=== PATIENT | male | born 1955 | race Caucasian/White ===

== ENCOUNTER 2020-08-24 12:25 | Outpatient (REF) | payer MEDICARE, MEDICAID, SELFPAY ==
[2020-08-24 14:53] LABS: Alanine Aminotransferase 12 U/L (0-40); Alkaline Phosphatase 90 U/L (39-117); Anion Gap 12 (12-20); Aspartate Amino Transferase 14 U/L (5-37); Bilirubin Total 0.5 mg/dL (0.0-1.0); Blood Urea Nitrogen 24 mg/dL (9-16); Calcium 8.8 mg/dL (8.4-10.2); Carbon Dioxide 29 mmol/L (22-29); Chloride 103 mmol/L (96-108); Estimated Glomerular Filt Rate 57; Glucose Random 133 mg/dL (60-115); Potassium 4.8 mmol/l (3.3-5.1); Sodium 139 mmol/L (135-145); Total Protein 6.5 g/dL (6.5-8.0)
[2020-08-24 15:49] LABS: Creatinine Urine 97.72 mg/dL; Microalbum/Creatinine Ratio Ur 304.9 ug/mg cr
== END 2020-08-24 12:26 | disposition home or self-care (01) ==
LOC: HO.HMGCLNP 12:25
PROVIDERS: PCP Internal Medicine; Visit Provider Internal Medicine
DX: E87.5 Hyperkalemia (principal); E11.65 Type 2 diabetes mellitus with hyperglycemia; E78.5 Hyperlipidemia, unspecified; I10 Essential (primary) hypertension; E55.9 Vitamin D deficiency, unspecified
CPT/HCPCS: 36415; 80053; 82043

== ENCOUNTER → 2020-10-12 14:06 | Outpatient (BNVA) | payer MEDICARE, MEDICAID, SELFPAY | PROVIDERS: PCP Internal Medicine; Visit Provider Internal Medicine | DX: I87.2 Venous insufficiency (chronic) (peripheral) (principal) | CPT/HCPCS: 99202 ==

== ENCOUNTER 2020-10-23 12:41 | Outpatient (RCR) | payer MEDICARE, MEDICAID, SELFPAY | END 2021-01-05 11:41 | disposition home or self-care (01) | LOC: HO.WCC 12:41 | PROVIDERS: PCP Internal Medicine; Visit Provider Physician Assistant | DX: Z09 Encounter for follow-up examination after completed treatment for conditions other than malignant neoplasm (principal); I87.302 Chronic venous hypertension (idiopathic) without complications of left lower extremity; E11.51 Type 2 diabetes mellitus with diabetic peripheral angiopathy without gangrene; I70.202 Unspecified atherosclerosis of native arteries of extremities, left leg; E11.40 Type 2 diabetes mellitus with diabetic neuropathy, unspecified; E11.65 Type 2 diabetes mellitus with hyperglycemia; Z79.4 Long term (current) use of insulin; Z87.891 Personal history of nicotine dependence; Z79.2 Long term (current) use of antibiotics | CPT/HCPCS: 11042; 97597; 99203; 99211 ==

== ENCOUNTER 2020-12-15 09:56 | Outpatient (REF) | payer MEDICARE, MEDICAID, SELFPAY ==
--- NOTE | 2020-12-15 | US_ITS ---
EXAMINATION: COLOR-FLOW DUPLEX IMAGING OF THE BILATERAL LOWER EXTREMITY ARTERIAL SYSTEM. VELOCITY MEASUREMENTS THROUGHOUT THE FEMORAL ARTERIES WITH ANKLE-BRACHIAL PERIPHERAL ARTERIAL TESTING. CLINICAL INFORMATION: This is a 65-year-old male with left leg ulcer. Peripheral arterial disease. Interventional Radiologist: Adiel Davis M.D., F.S.I.R., F.A.C.R. RIGHT FEMORAL RUNOFF VELOCITIES: The right common femoral artery measures 119 cm/s and triphasic. The right profunda femoral artery is 102 cm/s and is monophasic. Right proximal superficial femoral artery measures 99 cm/s and triphasic. Mid superficial femoral artery is 118 cm/s and triphasic. Distal right superficial femoral artery measures 141 cm/s and is triphasic. Right popliteal velocity measures 217 cm/s and is triphasic. The posterior tibial artery velocity measures 83 cm/s and was monophasic. LEFT FEMORAL RUNOFF VELOCITIES: The left common femoral artery measures 119 cm/s and triphasic. The right profunda femoral artery is 95 cm/s and is biphasic. Right proximal superficial femoral artery measures 125 cm/s and triphasic. Mid superficial femoral artery is 111 cm/s and triphasic. Distal right superficial femoral artery measures 93 cm/s and is triphasic. Right popliteal velocity measures 108 cm/s and is triphasic. The posterior tibial artery velocity measures 104 cm/s and was triphasic. Calcified atherosclerotic plaque is seen throughout the arteries. There is a 2.3 x 1.0 x 1.5 cm lymph node in the left groin. There is a fatty hilum with normal vascularity. Clinical correlation is recommended. Incidental note is made of subcutaneous edema in the left calf. US/US arterial duplex LE BI IMPRESSION: 1. There is an elevated velocity in the right popliteal artery suggesting a hemodynamically significant stenosis. 2. No hemodynamically significant stenosis is seen in the right lower 70 runoff.
== END 2020-12-15 09:57 | disposition home or self-care (01) ==
LOC: HO.US 09:56
PROVIDERS: Visit Provider Physician Assistant
DX: I87.312 Chronic venous hypertension (idiopathic) with ulcer of left lower extremity (principal); I70.242 Atherosclerosis of native arteries of left leg with ulceration of calf
CPT/HCPCS: 93925

== ENCOUNTER 2021-04-28 09:24 | Outpatient (REF) | payer MEDICARE, MEDICAID, SELFPAY ==
[2021-04-28 11:24] LABS: MANUAL DIFF FLAG NO
[2021-04-28 11:32] LABS: Basophils Percent Auto 0.2 % (0-2); Eosinophils Absolute Auto 0.5 X10*3/uL (0.0-0.4); Eosinophils Percent Auto 4.1 % (0-4); Hematocrit 33.3 % (42-52); Hemoglobin 10.7 g/dl (14.0-18.0); Imm Gran Abs Auto 0.05 X10*3/uL (0.00-0.03); Imm Gran Pct Auto 0.4 % (0.0-0.4); Lymphocytes Absolute Auto 1.3 X10*3/uL (1.2-4.9); Lymphocytes Percent Auto 10.3 % (20-40); Mean Corpuscular HGB Conc 32.1 g/dl (31.0-36.0); Mean Corpuscular Hemoglobin 31.1 pg (27.0-33.0); Mean Corpuscular Volume 96.8 fL (80-98); Mean Platelet Volume 10.5 fL (9.4-12.4); Monocytes Absolute Auto 0.8 X10*3/uL (0.1-1.2); Monocytes Percent Auto 6.7 % (2-11); Neutrophils Absolute Auto 9.6 X10*3/uL (2.0-8.3); Neutrophils Percent Auto 78.3 % (45-73); Platelet Count 300 X10*3/uL (160-400); Red Blood Count 3.44 X10*6/uL (4.60-5.80); Red Cell Distribution Width 12.4 % (11.0-16.0); White Blood Count 12.3 X10*3/uL (4.8-10.8)
[2021-04-28 11:38] LABS: Estimated Average Glucose 111 mg/dL; Hemoglobin A1c % 5.5 %
[2021-04-28 11:51] LABS: Alanine Aminotransferase 8 U/L (0-40); Albumin Level 3.9 g/dL (3.5-5.0); Alkaline Phosphatase 85 U/L (39-117); Anion Gap 14 (12-20); Aspartate Amino Transferase 11 U/L (5-37); Bilirubin Total 0.6 mg/dL (0.0-1.0); Blood Urea Nitrogen 28 mg/dL (9-16); Calcium 9.2 mg/dL (8.4-10.2); Carbon Dioxide 28 mmol/L (22-29); Chloride 104 mmol/L (96-108); Cholesterol 97 mg/dL; Estimated Glomerular Filt Rate 47; Glucose Fasting 185 mg/dL (60-99); HDL Cholesterol 23 mg/dL; Iron 59 mcg/dL (45-160); LDL Cholesterol Calculated 55 mg/dl; Percent Iron Saturation 24 % (15-50); Potassium 5.6 mmol/L (3.3-5.1); Sodium 140 mmol/L (135-145); Total Iron Binding Capacity 248 mcg/dL (228-428); Total Protein 6.3 g/dL (6.5-8.0); Triglycerides 96 mg/dL; Unsaturated Iron Binding 189 ug/dL
[2021-04-28 12:01] LABS: Vitamin D 25-OH Total 39.4 ng/mL (>30)
[2021-04-28 12:23] LABS: Creatinine Urine 127.85 mg/dL; Microalbum/Creatinine Ratio Ur 198.6 ug/mg cr
== END 2021-04-28 09:25 | disposition home or self-care (01) ==
LOC: HO.HMGCLDS 09:24
PROVIDERS: PCP Internal Medicine; Visit Provider Internal Medicine
DX: E11.40 Type 2 diabetes mellitus with diabetic neuropathy, unspecified (principal); M15.9 Polyosteoarthritis, unspecified; L03.119 Cellulitis of unspecified part of limb; I73.9 Peripheral vascular disease, unspecified; D50.9 Iron deficiency anemia, unspecified
CPT/HCPCS: 36415; 80053; 80061; 82043; 82306; 83036; 83540; 85025

== ENCOUNTER → 2021-05-19 13:54 | Outpatient (BNVA) | payer MEDICARE, MEDICAID, SELFPAY | PROVIDERS: PCP Internal Medicine; Referring Provider Internal Medicine; Visit Provider Surgery | DX: L02.831 Carbuncle of head [any part, except face] (principal) | CPT/HCPCS: 10060; 97597; 99202 ==

== ENCOUNTER → 2021-06-02 14:48 | Outpatient (BNVA) | payer MEDICARE, MEDICAID, SELFPAY | PROVIDERS: PCP Internal Medicine; Referring Provider Internal Medicine; Visit Provider Surgery | DX: Z09 Encounter for follow-up examination after completed treatment for conditions other than malignant neoplasm (principal); L02.93 Carbuncle, unspecified | CPT/HCPCS: 99212 ==

== ENCOUNTER → 2021-06-17 13:28 | Outpatient (BNVA) | payer MEDICARE, MEDICAID, SELFPAY | PROVIDERS: PCP Internal Medicine; Visit Provider Internal Medicine | DX: E11.40 Type 2 diabetes mellitus with diabetic neuropathy, unspecified (principal); I73.9 Peripheral vascular disease, unspecified; I10 Essential (primary) hypertension; E78.5 Hyperlipidemia, unspecified; Z87.891 Personal history of nicotine dependence; Z99.3 Dependence on wheelchair; Z79.4 Long term (current) use of insulin; Z79.899 Other long term (current) drug therapy | CPT/HCPCS: 82947; 99212 ==

== ENCOUNTER 2021-08-17 09:26 | Outpatient (REF) | payer MEDICARE, MEDICAID, SELFPAY ==
[2021-08-17 11:29] LABS: MANUAL DIFF FLAG NO
[2021-08-17 11:46] LABS: Basophils Percent Auto 0.5 % (0-2); Eosinophils Absolute Auto 0.4 X10*3/uL (0.0-0.4); Eosinophils Percent Auto 5.6 % (0-4); Hematocrit 31.8 % (42-52); Imm Gran Abs Auto 0.03 X10*3/uL (0.00-0.03); Imm Gran Pct Auto 0.4 % (0.0-0.4); Lymphocytes Absolute Auto 1.5 X10*3/uL (1.2-4.9); Lymphocytes Percent Auto 19.8 % (20-40); Mean Corpuscular HGB Conc 31.4 g/dl (31.0-36.0); Mean Corpuscular Hemoglobin 29.9 pg (27.0-33.0); Mean Corpuscular Volume 94.9 fL (80-98); Mean Platelet Volume 10.4 fL (9.4-12.4); Monocytes Absolute Auto 0.6 X10*3/uL (0.1-1.2); Monocytes Percent Auto 7.4 % (2-11); Neutrophils Absolute Auto 5.1 X10*3/uL (2.0-8.3); Neutrophils Percent Auto 66.3 % (45-73); Platelet Count 443 X10*3/uL (160-400); Red Blood Count 3.35 X10*6/uL (4.60-5.80); Red Cell Distribution Width 13.3 % (11.0-16.0); White Blood Count 7.7 X10*3/uL (4.8-10.8)
[2021-08-17 11:49] LABS: Estimated Average Glucose 137 mg/dL; Hemoglobin A1c % 6.4 %
[2021-08-17 12:18] LABS: Anion Gap 14 (12-20); Blood Urea Nitrogen 25 mg/dL (9-16); Carbon Dioxide 25 mmol/L (22-29); Chloride 107 mmol/L (96-108); Estimated Glomerular Filt Rate 53; Glucose Fasting 82 mg/dL (60-99); Iron 62 mcg/dL (45-160); Percent Iron Saturation 24 % (15-50); Potassium 5.1 mmol/L (3.3-5.1); Sodium 141 mmol/L (135-145); Total Iron Binding Capacity 257 mcg/dL (228-428); Unsaturated Iron Binding 195 ug/dL
== END 2021-08-17 09:27 | disposition home or self-care (01) ==
LOC: HO.HMGCLDS 09:26
PROVIDERS: PCP Internal Medicine; Visit Provider Internal Medicine
DX: D50.9 Iron deficiency anemia, unspecified (principal); E11.40 Type 2 diabetes mellitus with diabetic neuropathy, unspecified; I73.9 Peripheral vascular disease, unspecified; I10 Essential (primary) hypertension
CPT/HCPCS: 36415; 80048; 83036; 83540; 85025

== ENCOUNTER 2021-09-24 13:40 | Outpatient (RCR) | payer MEDICARE, MEDICAID, SELFPAY | END 2021-09-27 16:06 | disposition home or self-care (01) | LOC: HO.WCC 13:40 | PROVIDERS: PCP Internal Medicine; Visit Provider Physician Assistant | DX: L89.321 Pressure ulcer of left buttock, stage 1 (principal); L89.311 Pressure ulcer of right buttock, stage 1; S70.311D Abrasion, right thigh, subsequent encounter; E11.40 Type 2 diabetes mellitus with diabetic neuropathy, unspecified; I10 Essential (primary) hypertension; R32 Unspecified urinary incontinence; Z87.891 Personal history of nicotine dependence; Z79.4 Long term (current) use of insulin | CPT/HCPCS: 99213 ==

== ENCOUNTER → 2021-11-03 13:21 | Outpatient (BNVA) | payer MEDICARE, MEDICAID, SELFPAY | PROVIDERS: PCP Internal Medicine; Referring Provider Internal Medicine; Visit Provider Nurse Practitioner Family | DX: Z12.11 Encounter for screening for malignant neoplasm of colon (principal); D50.8 Other iron deficiency anemias | CPT/HCPCS: 99202 ==

== ENCOUNTER 2021-11-18 09:43 | Outpatient (REF) | payer MEDICARE, MEDICAID, SELFPAY ==
[2021-11-18 11:06] LABS: MANUAL DIFF FLAG NO
[2021-11-18 11:10] LABS: Basophils Percent Auto 0.2 % (0-2); Eosinophils Absolute Auto 0.5 X10*3/uL (0.0-0.4); Eosinophils Percent Auto 5.2 % (0-4); Hematocrit 32.7 % (42.0-52.0); Hemoglobin 10.6 g/dl (14.0-18.0); Imm Gran Abs Auto 0.02 X10*3/uL (0.00-0.03); Imm Gran Pct Auto 0.2 % (0.0-0.4); Lymphocytes Absolute Auto 1.6 X10*3/uL (1.2-4.9); Lymphocytes Percent Auto 17.2 % (20-40); Mean Corpuscular HGB Conc 32.4 g/dl (31.0-36.0); Mean Corpuscular Volume 95.6 fL (80.0-98.0); Mean Platelet Volume 10.3 fL (9.4-12.4); Monocytes Absolute Auto 0.6 X10*3/uL (0.1-1.2); Monocytes Percent Auto 6.7 % (2-11); Neutrophils Absolute Auto 6.5 x10*3/uL (2.0-8.3); Neutrophils Percent Auto 70.5 % (45-73); Platelet Count 327 X10*3/uL (160-400); Red Blood Count 3.42 X10*6/uL (4.60-5.80); Red Cell Distribution Width 13.4 % (11.0-16.0); White Blood Count 9.2 X10*3/uL (4.8-10.8)
[2021-11-18 11:23] LABS: Estimated Average Glucose 117 mg/dL; Hemoglobin A1c % 5.7 %
[2021-11-18 11:49] LABS: Alanine Aminotransferase 14 U/L (0-40); Alkaline Phosphatase 76 U/L (39-117); Anion Gap 10 (12-20); Aspartate Amino Transferase 14 U/L (5-37); Bilirubin Total 0.9 mg/dL (0.0-1.0); Blood Urea Nitrogen 22 mg/dL (9-16); Calcium 9.4 mg/dL (8.4-10.2); Carbon Dioxide 29 mmol/L (22-29); Chloride 105 mmol/L (96-108); Cholesterol 97 mg/dL; Estimated Glomerular Filt Rate 56; Glucose Fasting 78 mg/dL (60-99); HDL Cholesterol 27 mg/dL; Iron 100 mcg/dL (45-160); LDL Cholesterol Calculated 53 mg/dl; Percent Iron Saturation 35 % (15-50); Potassium 4.9 mmol/L (3.3-5.1); Sodium 139 mmol/L (135-145); Total Iron Binding Capacity 286 mcg/dL (228-428); Total Protein 6.9 g/dL (6.5-8.0); Triglycerides 89 mg/dL; Unsaturated Iron Binding 186 ug/dL
[2021-11-18 12:00] LABS: Creatinine Urine 67.18 mg/dL; Microalbum/Creatinine Ratio Ur 695.1 ug/mg cr
== END 2021-11-18 09:44 | disposition home or self-care (01) ==
LOC: HO.HMGCLDS 09:43
PROVIDERS: PCP Internal Medicine; Visit Provider Internal Medicine
DX: E11.40 Type 2 diabetes mellitus with diabetic neuropathy, unspecified (principal); D50.9 Iron deficiency anemia, unspecified; E78.5 Hyperlipidemia, unspecified; I10 Essential (primary) hypertension; I73.9 Peripheral vascular disease, unspecified; I87.2 Venous insufficiency (chronic) (peripheral); Z79.4 Long term (current) use of insulin
CPT/HCPCS: 36415; 80053; 80061; 82043; 82306; 83036; 83540; 85025

== ENCOUNTER 2022-04-06 09:59 | Outpatient (REF) | payer MEDICARE, MEDICAID, SELFPAY ==
[2022-04-06 11:33] LABS: MANUAL DIFF FLAG NO
[2022-04-06 11:48] LABS: Basophils Percent Auto 0.3 % (0-2); Eosinophils Absolute Auto 0.5 X10*3/uL (0.0-0.4); Eosinophils Percent Auto 5.5 % (0-4); Hematocrit 33.3 % (42.0-52.0); Hemoglobin 10.8 g/dl (14.0-18.0); Imm Gran Abs Auto 0.02 X10*3/uL (0.00-0.03); Imm Gran Pct Auto 0.2 % (0.0-0.4); Lymphocytes Absolute Auto 1.9 X10*3/uL (1.2-4.9); Lymphocytes Percent Auto 20.9 % (20-40); Mean Corpuscular HGB Conc 32.4 g/dl (31.0-36.0); Mean Corpuscular Volume 95.7 fL (80.0-98.0); Mean Platelet Volume 10.3 fL (9.4-12.4); Monocytes Absolute Auto 0.6 X10*3/uL (0.1-1.2); Monocytes Percent Auto 6.6 % (2-11); Neutrophils Percent Auto 66.5 % (45-73); Platelet Count 308 X10*3/uL (160-400); Red Blood Count 3.48 X10*6/uL (4.60-5.80); Red Cell Distribution Width 12.3 % (11.0-16.0)
[2022-04-06 11:50] LABS: Estimated Average Glucose 117 mg/dL; Hemoglobin A1c % 5.7 %
[2022-04-06 11:54] LABS: Alanine Aminotransferase 12 U/L (0-40); Anion Gap 11 (12-20); Aspartate Amino Transferase 14 U/L (5-37); Blood Urea Nitrogen 29 mg/dL (9-16); Calcium 9.3 mg/dL (8.4-10.2); Carbon Dioxide 26 mmol/L (22-29); Chloride 107 mmol/L (96-108); Cholesterol 100 mg/dL; Estimated Glomerular Filt Rate 53; Glucose Fasting 104 mg/dL (60-99); HDL Cholesterol 28 mg/dL; LDL Cholesterol Calculated 55 mg/dl; Potassium 5.3 mmol/L (3.3-5.1); Sodium 139 mmol/L (135-145); Triglycerides 88 mg/dL
[2022-04-06 12:12] LABS: Creatinine Urine 36.06 mg/dL; Microalbum/Creatinine Ratio Ur 537.9 ug/mg cr
[2022-04-06 12:20] LABS: Vitamin D 25-OH Total 32.9 ng/mL (>30)
== END 2022-04-06 10:00 | disposition home or self-care (01) ==
LOC: HO.HMGCLDS 09:59
PROVIDERS: Visit Provider Internal Medicine
DX: E11.40 Type 2 diabetes mellitus with diabetic neuropathy, unspecified (principal); D50.9 Iron deficiency anemia, unspecified; E78.5 Hyperlipidemia, unspecified; I10 Essential (primary) hypertension; Z79.4 Long term (current) use of insulin
CPT/HCPCS: 36415; 80048; 80061; 82043; 82306; 83036; 84450; 84460; 85025

== ENCOUNTER 2022-04-29 09:49 | Outpatient (REF) | payer MEDICARE, MEDICAID, SELFPAY ==
[2022-04-29 12:12] LABS: Blood Urea Nitrogen 35 mg/dL (9-16); Estimated Glomerular Filt Rate 45
== END 2022-04-29 09:50 | disposition home or self-care (01) ==
LOC: HO.HMGCLDS 09:49
PROVIDERS: PCP Internal Medicine; Visit Provider Radiology Vascular & Interventional Radiology
DX: R79.89 Other specified abnormal findings of blood chemistry (principal); R94.4 Abnormal results of kidney function studies
CPT/HCPCS: 36415; 82565; 84520

== ENCOUNTER 2022-05-06 13:04 | Outpatient (REF) | payer MEDICARE, MEDICAID, SELFPAY ==
[2022-05-06 15:37] LABS: Blood Urea Nitrogen 34 mg/dL (9-16); Estimated Glomerular Filt Rate 38
== END 2022-05-06 13:05 | disposition home or self-care (01) ==
LOC: HO.HMGCLDS 13:04
PROVIDERS: PCP Internal Medicine; Visit Provider Radiology Vascular & Interventional Radiology
DX: R79.89 Other specified abnormal findings of blood chemistry (principal); R94.4 Abnormal results of kidney function studies
CPT/HCPCS: 36415; 82565; 84520

== ENCOUNTER 2022-05-09 12:33 | Outpatient (REF) | payer MEDICARE, MEDICAID, SELFPAY ==
[2022-05-09 14:20] LABS: Blood Urea Nitrogen 18 mg/dL (9-16); Estimated Glomerular Filt Rate 47
== END 2022-05-09 12:34 | disposition home or self-care (01) ==
LOC: HO.HMGCLDS 12:33
PROVIDERS: Visit Provider Radiology Vascular & Interventional Radiology
DX: R79.89 Other specified abnormal findings of blood chemistry (principal); R94.4 Abnormal results of kidney function studies
CPT/HCPCS: 36415; 82565; 84520

== ENCOUNTER 2022-08-06 10:18 | Outpatient (REF) | payer MEDICARE, MEDICAID, SELFPAY ==
[2022-08-06 11:15] LABS: MANUAL DIFF FLAG NO
[2022-08-06 11:25] LABS: Basophils Percent Auto 0.4 % (0-2); Eosinophils Absolute Auto 0.4 X10*3/uL (0.0-0.4); Eosinophils Percent Auto 4.1 % (0-4); Hematocrit 33.9 % (42.0-52.0); Imm Gran Abs Auto 0.04 X10*3/uL (0.00-0.03); Imm Gran Pct Auto 0.4 % (0.0-0.4); Lymphocytes Absolute Auto 1.7 X10*3/uL (1.2-4.9); Lymphocytes Percent Auto 16.6 % (20-40); Mean Corpuscular HGB Conc 32.4 g/dl (31.0-36.0); Mean Corpuscular Hemoglobin 31.2 pg (27.0-33.0); Mean Platelet Volume 9.9 fL (9.4-12.4); Monocytes Absolute Auto 0.7 X10*3/uL (0.1-1.2); Monocytes Percent Auto 7.2 % (2-11); Neutrophils Absolute Auto 7.1 x10*3/uL (2.0-8.3); Neutrophils Percent Auto 71.3 % (45-73); Platelet Count 340 X10*3/uL (160-400); Red Blood Count 3.53 X10*6/uL (4.60-5.80); Red Cell Distribution Width 12.4 % (11.0-16.0); White Blood Count 9.9 X10*3/uL (4.8-10.8)
[2022-08-06 11:26] LABS: Estimated Average Glucose 114 mg/dL; Hemoglobin A1c % 5.6 %
[2022-08-06 12:18] LABS: Alanine Aminotransferase 12 U/L (0-40); Anion Gap 14 (12-20); Aspartate Amino Transferase 15 U/L (5-37); Blood Urea Nitrogen 31 mg/dL (9-16); Calcium 9.4 mg/dL (8.4-10.2); Carbon Dioxide 28 mmol/L (22-29); Chloride 104 mmol/L (96-108); Cholesterol 94 mg/dL; Estimated Glomerular Filt Rate 49; Glucose Fasting 100 mg/dL (60-99); HDL Cholesterol 26 mg/dL; Iron 69 mcg/dL (45-160); LDL Cholesterol Calculated 49 mg/dl; Percent Iron Saturation 24 % (15-50); Potassium 6.1 mmol/L (3.3-5.1); Sodium 140 mmol/L (135-145); Total Iron Binding Capacity 287 mcg/dL (228-428); Triglycerides 98 mg/dL; Unsaturated Iron Binding 218 ug/dL
== END 2022-08-06 10:19 | disposition home or self-care (01) ==
LOC: HO.HMGCLDS 10:18
PROVIDERS: PCP Internal Medicine; Visit Provider Internal Medicine
DX: D64.9 Anemia, unspecified (principal); E78.5 Hyperlipidemia, unspecified; E11.40 Type 2 diabetes mellitus with diabetic neuropathy, unspecified; I10 Essential (primary) hypertension; Z79.4 Long term (current) use of insulin
CPT/HCPCS: 36415; 80048; 80061; 83036; 83540; 84450; 84460; 85025

== ENCOUNTER 2022-08-08 13:45 | Outpatient (REF) | payer MEDICARE, MEDICAID, SELFPAY ==
[2022-08-08 16:33] LABS: Potassium 5.5 mmol/L (3.3-5.1)
== END 2022-08-08 13:46 | disposition home or self-care (01) ==
LOC: HO.HMGCLDS 13:45
PROVIDERS: PCP Internal Medicine; Visit Provider Internal Medicine
DX: E87.5 Hyperkalemia (principal)
CPT/HCPCS: 36415; 84132

== ENCOUNTER 2022-10-04 10:43 | Day surgery (SDC) | payer MEDICARE, MEDICAID, SELFPAY ==
[2022-09-27 14:11] VITALS: BMI 31.8
--- NOTE | 2022-10-03 13:16 | HO.ANESPROP2 ---
Documented by User: Mariel Yoo NP 10/03/22 13:19 HPI - Anesthesia Eval Consult details Narrative: 67yo M for Upper Endoscopy and Colonoscopy Hx hyperkalemia - repeat DOS PMFSH Active Problems Active Problems: All Active Problems (Updated 08/08/22 @ 13:43 by Jaquelin Marr MD) Type 2 diabetes mellitus with diabetic neuropathy (Acute) HTN (hypertension) (Acute) HLD (hyperlipidemia) (Acute) Anemia of chronic disease (Acute) Critical illness polyneuropathy (Acute) Difficulty walking (Acute) Acquired deformity of toenail (Acute) Carbuncle (Acute) Venous stasis dermatitis of both lower extremities (Acute) Peripheral vascular disease (Acute) DDD (degenerative disc disease), cervical (Acute) Difficulty standing (Acute) Past Medical History Medical History (Updated 08/08/22 @ 13:43 by Jaquelin Marr MD) Acquired deformity of toenail Anemia of chronic disease Atonic bladder Benign prostatic hyperplasia with urinary retention Carbuncle Chronic venous insufficiency of lower extremity Critical illness polyneuropathy DDD (degenerative disc disease), cervical Decubitus skin ulcer Difficulty standing Difficulty walking History of coma HLD (hyperlipidemia) HTN (hypertension) Obstructive uropathy Osteoarthritis of multiple joints Peripheral vascular disease Poor mobility Stage 3a chronic kidney disease Type 2 diabetes mellitus with diabetic neuropathy Venous stasis dermatitis of both lower extremities Family History Family History Father Myocardial infarct Mother Diabetes Surgical History Surgical History Cystostomy in place H/O transurethral resection of prostate Hx of appendectomy Hx of colonoscopy Social History Social History Housing: Apartment Alcohol intake: never Patient Tobacco Use Status: Former Tobacco user Years Smoked: 15 yrs e-Cigarette/Vaping Use: Never Used Advance Directives: No Advance Directives Information Provided: Yes Current occupational status: disabled Cognitive needs: No Hearing needs: No Vision needs: No Meds Allergies Allergy/AdvReac Type Severity Reaction Status Date / Time No Known Allergies Allergy Verified 08/08/22 13:21 Exam Exam Date and Time: October 03, 2022 1316 Height,Weight and Vital Signs: Height 5 ft 11 in Weight 103.419 kg Pertinent Lab Results Pertinent Lab Results: Laboratory Tests 08/06/22 08/06/22 08/08/22 10:25 10:25 13:50 WBC 9.9 Hgb 11.0 L Hct 33.9 L Plt Count 340 Sodium 140 Potassium 5.5 H Chloride 104 Carbon Dioxide 28 BUN 31 H Creatinine 1.42 H Assessment and Plan Assessment Anesthesia Assessment: Chart Reviewed Documented by User: Christal Cabrera MD 10/04/22 11:48 PMF Past Medical History Medical History (Updated 08/08/22 @ 13:43 by Jaquelin Marr MD) Acquired deformity of toenail Anemia of chronic disease Atonic bladder Benign prostatic hyperplasia with urinary retention Carbuncle Chronic venous insufficiency of lower extremity Critical illness polyneuropathy DDD (degenerative disc disease), cervical Decubitus skin ulcer Difficulty standing Difficulty walking History of coma HLD (hyperlipidemia) HTN (hypertension) Obstructive uropathy Osteoarthritis of multiple joints Peripheral vascular disease Poor mobility Stage 3a chronic kidney disease Type 2 diabetes mellitus with diabetic neuropathy Venous stasis dermatitis of both lower extremities Family History Family History Father Myocardial infarct Mother Diabetes Family history of problems with anesthesia: No Surgical History Surgical History Cystostomy in place H/O transurethral resection of prostate Hx of appendectomy Hx of colonoscopy History of Problems with Anesthesia: No Social History Social History Housing: Apartment Alcohol intake: never Patient Tobacco Use Status: Former Tobacco user Years Smoked: 15 yrs e-Cigarette/Vaping Use: Never Used Advance Directives: No Advance Directives Information Provided: Yes Current occupational status: disabled Cognitive needs: No Hearing needs: No Vision needs: No Meds Allergies Allergy/AdvReac Type Severity Reaction Status Date / Time No Known Allergies Allergy Verified 08/08/22 13:21 Exam Airway Mallampati Class: II (Edentulous) TM Dist: >3cm Neck ROM: Full Heart: rrr Lungs: cta Assessment and Plan Assessment Anesthesia Assessment: Anesthesia Plan Discussed and Chart Reviewed Final Anesthetic Review Family History of Problems with Anesthesia: No History of Problems with Anesthesia: No NPO: Yes ASA Class: III Final Preanesthetic Review: No Changes in Pt Med Stat, Meds/Allgs Chart Reviewed and Consent Obtained/Reviewed Patient Risk: Intermediate Procedure Risk: Intermediate Anesthetic Plan Anesthetic Plan: MAC: Disposition: Standard PACU
--- NOTE | 2022-10-04 11:03 | MHC.SHP ---
Pre-Procedural Eval Section A Date of Service: 10/04/22 Section B Chief Complaint: anemia Relevant Family History (Specify if Yes): No Relevant Social History: None Present Medications: see Short Stay Collaborative assessment Medical History: Significant History (Acquired deformity of toenail Anemia of chronic disease Atonic bladder Benign prostatic hyperplasia with urinary retention Carbuncle Chronic venous insufficiency of lower extremity Critical illness polyneuropathy DDD (degenerative disc disease), cervical Decubitus skin ulcer Difficulty standing Diff) History of Previous Operations: Relevant previous surgery/procedure and date(s) (Cystostomy in place H/O transurethral resection of prostate Hx of appendectomy Hx of colonoscopy) Allergies: Allergies Allergy/AdvReac Type Severity Reaction Status Date / Time No Known Allergies Allergy Verified 08/08/22 13:21 Review of Systems Sugical H&P ROS: Negative: Constitution, Cardiovascular, Respiratory, Neurological, Psychiatric, Hem-Onc, Allergic/Immunologic, Gastrointestinal, Genitourinary, Musculoskeletal, Integumentary, Endocrine and Eyes/Ears/Nose/Throat Exam Surgical H&P Exam: Normal: HEENT, Normal: Heart, Normal: Lungs, Normal: Extremities, Normal: Abdomen and Normal: Skin and Significant Findings: Neurological (reduced movement legs ) Plan Diagnosis/Plan: Unchanged I have reviewed the history and physical and performed a pertinent physical examination on my patient. No changes have occurred unless specified.
[2022-10-04 11:49] LABS: Anion Gap 16 (12-20); Blood Urea Nitrogen 25 mg/dL (9-16); Calcium 9.7 mg/dL (8.4-10.2); Carbon Dioxide 26 mmol/L (22-29); Chloride 104 mmol/L (96-108); Creatinine Clr Calc Pharmacy 63.2; Estimated Glomerular Filt Rate 52; Glucose Fasting 94 mg/dL (60-99); Potassium 5.5 mmol/L (3.3-5.1); Sodium 140 mmol/L (135-145)
[2022-10-04 11:54] LABS: Glucose, Whole Blood 87 mg/dL (60-115)
[2022-10-04 11:57] VITALS: BP 144/56; PULSE 55; RESP 16; TEMP 36.6; O2SAT 98
[2022-10-04] MEDS: Lactated Ringers 1,000 ML 100 ML IVCONT (11:58)
--- NOTE | 2022-10-04 12:14 | W.PM.OPN ---
Operative Note Operative Note Date of Service: 10/04/22 Narrative: Operative Information Procedure Description: EGD, Indication: anemia, diarrhea Anesthesia: MAC FLEXIBLE TRANSORAL UPPER GASTROINTESTINAL ENDOSCOPY UPPER ENDOSCOPY Consent: Indications for the procedure and potential complications of bleeding, perforation, reaction to medications and missed diagnosis were discussed with the patient and informed consent was obtained. Instrument: Olympus GIF H 190 J mid size upper endoscope Monitoring: Vital signs and clinical assessment, continuous EKG monitoring, Pulse oximetry, Carbon Dioxide monitoring and blood pressure monitoring were done throughout the procedure. Procedure: The patient was placed in the left lateral decubitis position and pre-procedure medications were administered and a bite block was placed. The endoscope was inserted into the mouth and advanced under direct vision to the third part of duodenum. A careful inspection was made as the upper endoscope was withdrawn including a retroflexed examination of the proximal stomach; Findings and interventions are described below. Findings: Larynx:normal Esophagus: GE junction at 40 cm, diaphragm hiatus at 40 cm, bogginess at GEJ, bx taken as well as from distal esophagus Stomach: mosaic pattern with patchy erythema and granularity. Biopsies were obtained. Grade 2 flap valve on retroflexed examination of the cardia. Duodenum: Normal bulb and descending duodenum, bx taken Intervention: Biopsies as noted above Patient was turned for colonoscopy but solid stool seen so procedure was abandoned Impression and Post Procedure Diagnosis: Endoscopy Findings: gastritis mild esophagitis Plan: await bx results see back in office to review prep Above findings were reviewed with the patient and relevant handouts were provided if indicated.
[2022-10-04 12:25] VITALS: BP 119/59; PULSE 58; RESP 16; TEMP 37.1; O2SAT 98
[2022-10-04 12:40] VITALS: BP 161/68; PULSE 58; RESP 18; O2SAT 98
== END 2022-10-04 13:40 | disposition home or self-care (01) ==
PROVIDERS: Nurse Practitioner; PCP Internal Medicine; Visit Provider Internal Medicine Gastroenterology
PROC: (CPT 43239; principal; 2022-10-04 11:50)
DX: D50.8 Other iron deficiency anemias (principal); R19.7 Diarrhea, unspecified; K29.50 Unspecified chronic gastritis without bleeding; K20.80 Other esophagitis without bleeding; K44.9 Diaphragmatic hernia without obstruction or gangrene; E11.22 Type 2 diabetes mellitus with diabetic chronic kidney disease; I12.9 Hypertensive chronic kidney disease with stage 1 through stage 4 chronic kidney disease, or unspecified chronic kidney disease; N18.31 Chronic kidney disease, stage 3a; E11.40 Type 2 diabetes mellitus with diabetic neuropathy, unspecified; Z79.4 Long term (current) use of insulin; I83.12 Varicose veins of left lower extremity with inflammation; I83.11 Varicose veins of right lower extremity with inflammation; I73.9 Peripheral vascular disease, unspecified; R26.2 Difficulty in walking, not elsewhere classified; Z87.891 Personal history of nicotine dependence; Z79.899 Other long term (current) drug therapy
CPT/HCPCS: 43239; 36415; 80048; 82947; 88305; 88342

== ENCOUNTER 2022-12-10 10:10 | Outpatient (REF) | payer MEDICARE, MEDICAID, SELFPAY ==
[2022-12-10 11:17] LABS: MANUAL DIFF FLAG NO
[2022-12-10 11:27] LABS: Basophils Percent Auto 0.5 % (0-2); Eosinophils Absolute Auto 0.5 X10*3/uL (0.0-0.4); Eosinophils Percent Auto 6.5 % (0-4); Hematocrit 35.1 % (42.0-52.0); Hemoglobin 11.3 g/dl (14.0-18.0); Imm Gran Abs Auto 0.03 X10*3/uL (0.00-0.03); Imm Gran Pct Auto 0.4 % (0.0-0.4); Lymphocytes Absolute Auto 1.8 X10*3/uL (1.2-4.9); Mean Corpuscular HGB Conc 32.2 g/dl (31.0-36.0); Mean Corpuscular Hemoglobin 30.6 pg (27.0-33.0); Mean Corpuscular Volume 95.1 fL (80.0-98.0); Mean Platelet Volume 10.1 fL (9.4-12.4); Monocytes Absolute Auto 0.6 X10*3/uL (0.1-1.2); Monocytes Percent Auto 7.2 % (2-11); Neutrophils Absolute Auto 5.2 x10*3/uL (2.0-8.3); Neutrophils Percent Auto 63.4 % (45-73); Platelet Count 336 X10*3/uL (160-400); Red Blood Count 3.69 X10*6/uL (4.60-5.80); Red Cell Distribution Width 12.7 % (11.0-16.0); White Blood Count 8.2 X10*3/uL (4.8-10.8)
[2022-12-10 11:33] LABS: Estimated Average Glucose 105 mg/dL; Hemoglobin A1c % 5.3 %
[2022-12-10 11:44] LABS: Alanine Aminotransferase 12 U/L (0-40); Anion Gap 12 (12-20); Aspartate Amino Transferase 15 U/L (5-37); Blood Urea Nitrogen 28 mg/dL (9-16); Calcium 9.2 mg/dL (8.4-10.2); Carbon Dioxide 28 mmol/L (22-29); Chloride 106 mmol/L (96-108); Cholesterol 94 mg/dL; Estimated Glomerular Filt Rate 49; Glucose Fasting 80 mg/dL (60-99); HDL Cholesterol 32 mg/dL; LDL Cholesterol Calculated 48 mg/dl; Potassium 5.2 mmol/L (3.3-5.1); Sodium 141 mmol/L (135-145); Triglycerides 74 mg/dL
[2022-12-10 12:03] LABS: Vitamin D 25-OH Total 35.4 ng/mL (>30)
== END 2022-12-10 10:11 | disposition home or self-care (01) ==
LOC: HO.HMGCLDS 10:10
PROVIDERS: PCP Internal Medicine; Visit Provider Internal Medicine
DX: E11.40 Type 2 diabetes mellitus with diabetic neuropathy, unspecified (principal); E78.5 Hyperlipidemia, unspecified; I10 Essential (primary) hypertension; D64.9 Anemia, unspecified; I73.9 Peripheral vascular disease, unspecified; Z79.4 Long term (current) use of insulin
CPT/HCPCS: 36415; 80048; 80061; 82306; 83036; 84450; 84460; 85025

== ENCOUNTER 2022-12-16 13:21 | Outpatient (AMB) | payer MEDICARE, MEDICAID, SELFPAY ==
--- NOTE | 2022-12-16 13:43 | MHC.PC.OV ---
Vital Signs 12/16/22 14:06 Height 5 ft 11 in Weight 233 lb BMI 32.5 BP 134/58 L Blood Pressure Location Lt brachial Position Sitting Pulse 65 Pulse Source Pulse Oximeter Pulse Oximetry (%) 95 Oxygen Delivery Method Room Air Intake Visit Reasons: 3 month follow up Intake Note: Pt is here today for his 3 months f/u Allergies No Known Allergies Allergy (Verified 12/16/22 14:19) Medication List - Last Reconciled 12/16/22 by Jaquelin Marr MD [22 wheelchair with bilateral leg lifts and foam cushion As directed; 22 wheelchair with bilateral leg lifts and foam cushion NS] alcohol swabs (Alcohol Pads) topical as directed; amlodipine 10 mg PO DAILY ascorbic acid (vitamin C) (Vitamin C) 500 mg PO DAILY atorvastatin 10 mg PO DAILY bisacodyl (Dulcolax (bisacodyl)) 10 mg (2 x 5 mg) PO ONCE 1 day blood sugar diagnostic (Contour Next Test Strips) Check blood sugar 3 times a day before meals [Cervical pillow As directed; cervical pillow] chlorhexidine gluconate 4% (Hibiclens) 1 appl topical BID 30 days cholecalciferol (vitamin D3) (Vitamin D3) 25 mcg PO DAILY docusate sodium 100 mg PO BEDTIME famotidine 20 mg PO DAILY ferrous fumarate 324 mg PO DAILY gabapentin 600 mg PO TID labetalol 200 mg PO BID lancets (BD Ultra Fine Lancets) Check blood sugar 3 times a day before meals [Low profile Roho seat cushion 18 inch As directed] meloxicam 15 mg PO DAILY PRN menthol-zinc oxide 0.44-20.6 % (Calmoseptine) 1 appl topical QID PRN metformin ER 1,000 mg (2 x 500 mg) PO BID nystatin (Nyamyc) apply to large affected area topical 4 times a day; pen needle, diabetic (Comfort EZ Pen Brooks) As directed; once daily polyethylene glycol 3350 (Miralax) 238 grams PO ONCE [roho cushion As directed] tizanidine 2 mg PO BEDTIME PRN Toujeo SoloStar U-300 Insulin (insulin glargine U-300 conc) 25 units (0.0833 mL) subcut DAILY NS Tobacco use date assessed: 08/08/22 Fall risk assessment: No Falls in past year Last assessed Fall Risk: 12/16/22 HPI 3 month follow up HPI Details 68-year-old male with diabetes mellitus, hypertension, hyperlipidemia and anemia of chronic disease, here today for follow-up. He has been taking his medications as directed, tries to follow recommended diet but leads a sedentary lifestyle. Diabetes mellitus controlled with hemoglobin A1c at 5.3%, lipids are within normal limits , noted on recent labs done, and still has mild anemia, unchanged from previous. Renal function however is noted to be slightly lower than last check. [facility] Medical History Difficulty walking Chronic venous insufficiency of lower extremity Poor mobility Atonic bladder History of coma Critical illness polyneuropathy Obstructive uropathy Anemia of chronic disease Stage 3a chronic kidney disease Benign prostatic hyperplasia with urinary retention Acquired deformity of toenail Decubitus skin ulcer HLD (hyperlipidemia) HTN (hypertension) Carbuncle Venous stasis dermatitis of both lower extremities Peripheral vascular disease DDD (degenerative disc disease), cervical Difficulty standing Type 2 diabetes mellitus with diabetic neuropathy Osteoarthritis of multiple joints Surgical History History of esophagogastroduodenoscopy (EGD) Cystostomy in place H/O transurethral resection of prostate Hx of colonoscopy Hx of appendectomy Family History Father Myocardial infarct Mother Diabetes Social History Housing: Apartment Alcohol intake: never Patient Tobacco Use Status: Former Tobacco user Years Smoked: 15 yrs e-Cigarette/Vaping Use: Never Used Current occupational status: disabled Cognitive needs: No Hearing needs: No Vision needs: No Questionnaire PHQ-9 Over the last 2 weeks, how often have you been bothered by any of the following problems? 44468 - PHQ-9 Billing: Patient declined-do not bill Source: Developed by Drs. John Roach, Chela Wade, Jd Del Valle and colleagues, with an educational domenico from [employer]. Thrive Questionnaire Date Thrive assessed: 12/16/22 I am a: Patient What is your living situation today?: I have a steady place to live Within the past 12 months, did the food you bought not last and you didn't have the money to get more?: Never true Within the past 12 months, did you worry whether your food would run out before you got money to buy more?: Never true Do you have trouble paying for medicines?: No Do you have trouble getting transportation to medical appointments?: No Do you have trouble paying your heating and electricity bill?: No Do you have trouble taking care of your child, family member or friend?: No Do you have trouble with day-to-day activities such as bathing, preparing meals, shopping, managing finances, etc.?: No Are you currently unemployed and looking for a job?: No Are you interested in more education?: No JOYA-7 AMB Questionnaire JOYA-7 Date JOYA - 7 assessed: 12/16/22 Source: Developed by Drs. John Roach, Chela Wade, Jd Del Valle and colleagues, with an educational domenico from [employer]. JOYA-7 Assessment Billing JOYA-7 Assessment Tool: pt declined-do not bill Review of Systems Const Denies body aches, Denies difficulty sleeping, Denies fever(s), Denies headache(s) and Reports weakness (Lower extremity) Eyes Reports no additional complaints ENT Denies dysphagia, Denies headache(s), Denies post nasal drip and Denies sinus pressure Card Denies chest pain, Denies rapid heart rate, Denies irregular heart rhythm and Denies dyspnea Resp Denies cough and Denies dyspnea GI Denies abdominal pain, Denies melena, Denies change in stool character, Denies dysphagia, Denies dyspepsia and Denies heartburn Reports no additional complaints Musc Reports abnormal gait, Reports arthralgias, Reports muscle weakness (legs), Reports stiffness and Reports tingling Skin/Breast Details: Dry skin Neuro Reports no additional complaints, Reports abnormal gait, Denies headache(s), Reports tingling and Reports weakness (Lower extremity) Psych Reports no additional complaints Endo Reports no additional complaints Braeden/Lymph Reports no additional complaints Aller/Immun Reports no additional complaints Physical exam (Primary Care) Vital Signs: Last Vital Signs Pulse 65 12/16/22 14:06 BP 134/58 L 12/16/22 14:06 Pulse Ox 95 12/16/22 14:06 Oxygen Delivery Method Room Air 12/16/22 14:06 BMI result Body Mass Index 32.5 BMI Assessment/Plan discussion: High BMI High, discussed plan: lifestyle, weight reduction, dietary and physical activity Tobacco/Smoking Status: Tobacco use Status Tobacco use date assessed 08/08/22 12/16/22 13:45 Patient Tobacco Use Status Former Tobacco user 12/16/22 13:45 e-Cigarette/Vaping Use Never Used 12/16/22 13:45 Thrive Assessment: Date of Thrive Assessment Date Thrive assessed 12/16/22 12/16/22 14:11 Const Other: Alert oriented x3, accompanied by medical care administrator, no acute distress noted, on a wheelchair Orientation/consciousness: patient oriented x3 HENOH General nose exam: Normal external nose present and No nasal discharge present Face and sinus: Yes face symmetric Mouth: Normal oral and palatal mucosa present, oropharynx normal and moist mucous membranes Eyes General: appearance normal, both eyes and all related structures Neck Neck: Yes full ROM, Yes no lymphadenopathy and Yes supple Resp Effort & Inspection: normal respiratory effort and able to speak in complete sentences Auscultation: clear to auscultation bilaterally Cardio Other: S1-S2 present regular rate and rhythm GI Inspection: Yes obesity Palpation (GI): Soft to palpation, nontender and no guarding General: Yes no CVA tenderness Back/Spine/Pelvis Back: no CVA tenderness and No back tenderness Neuro General: patient oriented x3, Normal light touch and pain sensation, no focal motor deficits, CN's II-XI intact bilaterally and decrease sensation to monofilament Gait exam (Neuro): Shuffling gait present and Wide-based gait present Psych Appearance: grossly normal and well kempt Mental Status: mental status grossly normal Speech and movement: Normal speech and movement present Affect: normal affect Attitude: cooperative Results Reviewed Results Reviewed: Laboratory Tests 12/10/22 10:18 Estimat Average Glucose 105 Hemoglobin A1c % 5.3 ENTERED: 12/10/22-1017 [facility]HI: ORDERED: CBC Auto Diff Test Result Flag Reference Site WBC 8.2 4.8-10.8 X10*3/uL RBC 3.69 L 4.60-5.80 X10*6/uL HGB 11.3 L 14.0-18.0 g/dl HCT 35.1 L 42.0-52.0 % MCV 95.1 80.0-98.0 fL MCH 30.6 27.0-33.0 pg MCHC 32.2 31.0-36.0 g/dl RDW 12.7 11.0-16.0 % PLT 336 160-400 X10*3/uL MPV 10.1 9.4-12.4 fL Neut Pct Auto 63.4 45-73 % ImGran Pct Auto 0.4 0.0-0.4 % Lymp Pct Auto 22.0 20-40 % [place] Pct Auto 7.2 2-11 % Eos Pct Auto 6.5 H 0-4 % Baso Pct Auto 0.5 0-2 % NRBC Pct Auto 0.0 0.0-0.2 /100WBC ANC Neut Abs # 5.2 2.0-8.3 x10*3/uL ImGran Abs Auto 0.03 0.00-0.03 X10*3/uL Lymph Abs Auto 1.8 1.2-4.9 X10*3/uL [place] Abs Auto 0.6 0.1-1.2 X10*3/uL Eos Abs Auto 0.5 H 0.0-0.4 X10*3/uL Baso Abs Auto 0.0 0.0-0.2 X10*3/uL NRBC Abs Auto 0.000 0.0-0.012 X10*3/uL ENTERED: 12/10/22-[address] [facility] [address]: ORDERED: Met Prof Fast, AST, ALT, Lipid Panel, Vitamin D 25-OH Test Result Flag Reference Site Sodium 141 135-145 mmol/L Potassium 5.2 H 3.3-5.1 mmol/L CL 106 96-108 mmol/L CO2 28 22-29 mmol/L Gap 12 12-20 BUN 28 H 9-16 mg/dL Creat 1.44 H 0.5-1.4 mg/dL EGFR 49 NOTE: For -[place] individuals, multiply the result by 1.210. Chronic Kidney Disease: Estimated GFR < 60 mL/min/1.73m2 Severe Kidney Disease: Estimated GFR < 15 mL/min/1.73m2 FBS 80 60-99 mg/dL CA 9.2 8.4-10.2 mg/dL AST (GOT) 15 5-37 U/L ALT (GPT) 12 0-40 U/L Triglyceride 74 mg/dL Desirable Triglyceride: less than 150 mg/dL Borderline High Triglyceride 150-199 mg/dL High Triglyceride: 200-499 mg/dL Very High Triglyceride: greater than or equal to 5OO mg/dL Chol 94 mg/dL Desirable Cholesterol: less than 200 mg/dL Borderline High Cholesterol: 200-239 mg/dL High Cholesterol: greater than 239 mg/dL LDL Calculated 48 mg/dl Desirable LDL: less than 100 mg/dL Near Optimal/Above Optimal LDL: 110-129 mg/dL Borderline High LDL: 130-159 mg/dL High LDL: 160-189 mg/dL Very High LDL: greater than or equal to 190 mg/dL HDL 32 mg/dL Desirable HDL: greater than 40 mg/dL Note: This HDL assay may give artificially low results in patients with liver disease. Vit D 25-OH Tot 35.4 >30 ng/mL Health Based Reference Values* < 20 ng/mL Deficient 20-30 ng/mL Insufficient > 30 ng/mL Sufficient Assessment and Plan Assessment & Plan (1) HLD (hyperlipidemia): Code(s): E78.5 - Hyperlipidemia, unspecified Qualifiers: Hyperlipidemia type: pure hypercholesterolemia Qualified Code(s): E78.00 - Pure hypercholesterolemia, unspecified (2) HTN (hypertension): Code(s): I10 - Essential (primary) hypertension Qualifiers: Hypertension type: primary hypertension Qualified Code(s): I10 - Essential (primary) hypertension Plan: Blood pressure at goal of less than 130/80. Continue with current medication. Reinforced importance of following a low sodium diet, getting regular exercise, and lowering stress levels. (3) Anemia of chronic disease: Code(s): D63.8 - Anemia in other chronic diseases classified elsewhere (4) Type 2 diabetes mellitus with diabetic neuropathy: Code(s): E11.40 - Type 2 diabetes mellitus with diabetic neuropathy, unspecified Qualifiers: Diabetes mellitus penitentiary insulin use: with tank terminal gauger use Qualified Code(s): E11.40 - Type 2 diabetes mellitus with diabetic neuropathy, unspecified; Z79.4 - half-way (current) use of insulin Plan: Recent lab results reviewed with patient, with sugar and hemoglobin A1c stable and at goal . Continue with metformin ER 1000 mg 1 tablet twice a day and to skilled nursing 5 units at night Reinforced diabetic diet and regular exercise with patient. Counseled regarding importance of yearly diabetes retinopathy screening. Patient advised to inspect feet daily, for any signs of injury, callus or infection. Compliance with diet and regular exercise again stressed. Blood pressure goal is less than 130/80, goal LDL is less than 100 and goal hemoglobin A1c is less than 7% follow-up appointment made in---months, after fasting labs done. Orders: Orders Hemoglobin A1c 04/10/23 E78.5 - Hyperlipidemia, unspecified, I10 - Essential (primary) hypertension, D63.8 - Anemia in other chronic diseases classified elsewhere, E11.40 - Type 2 diabetes mellitus with diabetic neuropathy, unspecified, Z79.4 - half-way (current) use of insulin Microalbumin, Random (w Creat) 04/10/23 E78.5 - Hyperlipidemia, unspecified, I10 - Essential (primary) hypertension, D63.8 - Anemia in other chronic diseases classified elsewhere, E11.40 - Type 2 diabetes mellitus with diabetic neuropathy, unspecified, Z79.4 - half-way (current) use of insulin Aspartate Amino Transferase 04/10/23 E78.5 - Hyperlipidemia, unspecified, I10 - Essential (primary) hypertension, D63.8 - Anemia in other chronic diseases classified elsewhere, E11.40 - Type 2 diabetes mellitus with diabetic neuropathy, unspecified, Z79.4 - termite helper (current) use of insulin Basic Metabolic Panel Fasting 04/10/23 E78.5 - Hyperlipidemia, unspecified, I10 - Essential (primary) hypertension, D63.8 - Anemia in other chronic diseases classified elsewhere, E11.40 - Type 2 diabetes mellitus with diabetic neuropathy, unspecified, Z79.4 - half-way (current) use of insulin IRON PROFILE 04/10/23 E78.5 - Hyperlipidemia, unspecified, I10 - Essential (primary) hypertension, D63.8 - Anemia in other chronic diseases classified elsewhere, E11.40 - Type 2 diabetes mellitus with diabetic neuropathy, unspecified, Z79.4 - half-way (current) use of insulin Lipid Panel 04/10/23 E78.5 - Hyperlipidemia, unspecified, I10 - Essential (primary) hypertension, D63.8 - Anemia in other chronic diseases classified elsewhere, E11.40 - Type 2 diabetes mellitus with diabetic neuropathy, unspecified, Z79.4 - termite helper (current) use of insulin Alanine Aminotransferase 04/10/23 E78.5 - Hyperlipidemia, unspecified, I10 - Essential (primary) hypertension, D63.8 - Anemia in other chronic diseases classified elsewhere, E11.40 - Type 2 diabetes mellitus with diabetic neuropathy, unspecified, Z79.4 - termite helper (current) use of insulin Complete Blood Count Auto Diff 04/10/23 E78.5 - Hyperlipidemia, unspecified, I10 - Essential (primary) hypertension, D63.8 - Anemia in other chronic diseases classified elsewhere, E11.40 - Type 2 diabetes mellitus with diabetic neuropathy, unspecified, Z79.4 - half-way (current) use of insulin Coding Level of Care Code Est Pt Level 4 (53054) Diagnoses Pure hypercholesterolemia E78.00 Hyperlipidemia type: pure hypercholesterolemia Primary hypertension I10 Hypertension type: primary hypertension Anemia of chronic disease D63.8 Type 2 diabetes mellitus with diabetic neuropathy, with long-term current use of insulin E11.40; Z79.4 Diabetes mellitus tank terminal gauger insulin use: with tank terminal gauger use
[2022-12-16 14:06] VITALS: BP 134/58; PULSE 65; O2SAT 95; BMI 32.5
== END 2022-12-16 15:45 | disposition home or self-care (01) ==
LOC: HO.HMGC 13:21
PROVIDERS: PCP Internal Medicine; Visit Provider Internal Medicine
DX: E78.00 Pure hypercholesterolemia, unspecified (principal); I10 Essential (primary) hypertension; D63.8 Anemia in other chronic diseases classified elsewhere; E11.40 Type 2 diabetes mellitus with diabetic neuropathy, unspecified; Z79.4 Long term (current) use of insulin
CPT/HCPCS: 99499

== ENCOUNTER 2022-12-27 12:46 | Outpatient (REF) | payer MEDICARE, MEDICAID, SELFPAY ==
--- NOTE | ~2022-12-27 | US_ITS ---
EXAMINATION: US LOWER EXTREMITY (REFLUX EXAM), LEFT CLINICAL INDICATION: Venous insufficiency COMPARISON: None. TECHNIQUE: Color flow triplex imaging and compression Doppler was performed to evaluate both the deep and the superficial systems of the left lower extremity. To evaluate the superficial system, the examination was performed in the upright position. Color-flow Doppler ultrasound and compression ultrasound were utilized. In addition, maneuvers were utilized to demonstrate reflux. FINDINGS: 1. DEEP VENOUS DOPPLER ULTRASOUND: Common Femoral Vein: Compressible, normal respiratory variation and augmented flow. Femoral Vein: Compressible, normal color flow and augmentation. Popliteal Vein: Compressible, normal augmentation. Deep Reflux: There is no evidence of reflux in the deep system in either the common femoral vein or the popliteal vein. There is no evidence of a Monae's cyst. 2. SUPERFICIAL VENOUS DOPPLER ULTRASOUND: GREAT SAPHENOUS VEIN: Saphenofemoral Junction: 0.82 cm; Reflux: 0 ms Proximal Thigh: 0.52 cm; Reflux: 0 ms Mid Thigh: 0.34 cm; Reflux: 0 ms Above Knee: 0.30 cm; Reflux: 0 ms At Knee: 0.37 cm; Reflux: 0 ms Below Knee: 0.39 cm; Reflux: 0 ms Mid Calf: 0.25 cm; Reflux: 0 ms Ankle: 0.28 cm; Reflux: 0 ms DUPLICATED MEDIAL GREAT SAPHENOUS VEIN: Diameter: None Imaged Reflux: NA DUPLICATED LATERAL GREAT SAPHENOUS VEIN: Proximal: 0.24 cm; Reflux: 0 ms Distal: 0.21 cm; Reflux: 0 ms SMALL SAPHENOUS VEIN: Proximal: 0.2 cm; Reflux: 0 ms Distal: 0.24 cm; Reflux: 0 ms VEIN OF GIACOMINI: None Imaged. PERFORATORS: Location: None Imaged Size: NA Reflux: NA VARICOSITIES: Location: None Imaged Size: NA Reflux: NA US/US venous duplex LE IMPRESSION: 1. No evidence of DVT or deep venous reflux. 2. No significant reflux in the left lower extremity.
== END 2022-12-27 12:47 | disposition home or self-care (01) ==
LOC: HO.US 12:46
PROVIDERS: Visit Provider Physician Assistant
DX: I87.2 Venous insufficiency (chronic) (peripheral) (principal)
CPT/HCPCS: 93971

== ENCOUNTER → 2023-04-28 16:00 | Outpatient (RCR) | payer MEDICARE, MEDICAID, SELFPAY ==
[2022-06-30 16:38] LABS: MANUAL DIFF FLAG NO
[2022-06-30 16:39] LABS: Basophils Percent Auto 0.3 % (0-2); Eosinophils Absolute Auto 0.4 X10*3/uL (0.0-0.4); Eosinophils Percent Auto 4.1 % (0-4); Hematocrit 32.8 % (42.0-52.0); Hemoglobin 10.8 g/dl (14.0-18.0); Imm Gran Abs Auto 0.02 X10*3/uL (0.00-0.03); Imm Gran Pct Auto 0.2 % (0.0-0.4); Lymphocytes Percent Auto 22.1 % (20-40); Mean Corpuscular HGB Conc 32.9 g/dl (31.0-36.0); Mean Corpuscular Hemoglobin 31.8 pg (27.0-33.0); Mean Corpuscular Volume 96.5 fL (80.0-98.0); Mean Platelet Volume 10.3 fL (9.4-12.4); Monocytes Absolute Auto 0.7 X10*3/uL (0.1-1.2); Monocytes Percent Auto 7.7 % (2-11); Neutrophils Absolute Auto 5.9 x10*3/uL (2.0-8.3); Neutrophils Percent Auto 65.6 % (45-73); Platelet Count 316 X10*3/uL (160-400); Red Cell Distribution Width 12.6 % (11.0-16.0)
[2022-06-30 16:45] LABS: Estimated Average Glucose 117 mg/dL; Hemoglobin A1c % 5.7 %
[2022-06-30 17:00] LABS: Anion Gap 14 (12-20); Blood Urea Nitrogen 35 mg/dL (9-16); C Reactive Protein 0.62 mg/dL (< or = 0.50); Calcium 9.1 mg/dL (8.4-10.2); Carbon Dioxide 26 mmol/L (22-29); Chloride 105 mmol/L (96-108); Estimated Glomerular Filt Rate 44; Glucose Random 118 mg/dL (60-115); Potassium 5.3 mmol/L (3.3-5.1); Sodium 140 mmol/L (135-145)
[2022-06-30 17:12] LABS: Erythrocyte Sedimentation Rate 23 MM/HR (0-15)
== END | disposition home or self-care (01) ==
LOC: HO.WCC 03-14 13:45
PROVIDERS: PCP Internal Medicine; Visit Provider Physician Assistant
DX: E11.621 Type 2 diabetes mellitus with foot ulcer (principal); L97.522 Non-pressure chronic ulcer of other part of left foot with fat layer exposed; S91.002A Unspecified open wound, left ankle, initial encounter; E11.51 Type 2 diabetes mellitus with diabetic peripheral angiopathy without gangrene; E11.40 Type 2 diabetes mellitus with diabetic neuropathy, unspecified; E11.65 Type 2 diabetes mellitus with hyperglycemia; I87.2 Venous insufficiency (chronic) (peripheral); R60.9 Edema, unspecified; I10 Essential (primary) hypertension; Z87.891 Personal history of nicotine dependence; Z79.899 Other long term (current) drug therapy
CPT/HCPCS: 11042; 15271; 15275; 17250; 29581; 36415; 80048; 83036; 84134; 85025; 85652; 86140; 97597; 99212; 99213; Q4187